=== PATIENT | male | born 1975 | race Two or more races ===

== ENCOUNTER 2018-09-03 11:45 | Outpatient (CLI) | payer OTHER | END 2018-09-03 13:53 | disposition home or self-care (01) | LOC: RAD 11:45 | DX: M77.31 Calcaneal spur, right foot (principal) ==

== ENCOUNTER → 2019-06-04 | Outpatient (CLI) | payer OTHER | END | disposition home or self-care (01) | LOC: RAD 08:46 | DX: M75.82 Other shoulder lesions, left shoulder (principal) ==

== ENCOUNTER → 2019-12-10 | Outpatient (CLI) | payer OTHER | END | disposition home or self-care (01) | LOC: MRI 11:45 | DX: M75.32 Calcific tendinitis of left shoulder (principal); M75.02 Adhesive capsulitis of left shoulder | CPT/HCPCS: 73221 ==

== ENCOUNTER 2024-11-11 07:59 | Outpatient (CLI) | payer OTHER | END 2024-11-11 08:00 | disposition home or self-care (01) | LOC: NUCLEAR 07:59 | DX: I73.9 Peripheral vascular disease, unspecified (principal); I70.0 Atherosclerosis of aorta; E11.65 Type 2 diabetes mellitus with hyperglycemia; R60.0 Localized edema ==

== ENCOUNTER 2024-11-18 08:55 | Outpatient (CLI) | payer OTHER | END 2024-11-18 09:02 | disposition home or self-care (01) | LOC: NUCLEAR 08:55 | PROVIDERS: ATTEND General Practice | DX: I73.9 Peripheral vascular disease, unspecified (principal); I10 Essential (primary) hypertension; E11.65 Type 2 diabetes mellitus with hyperglycemia ==

== ENCOUNTER → 2025-09-26 | Outpatient (CLI) | payer OTHER | END | disposition home or self-care (01) | LOC: RAD 14:12 | PROVIDERS: ATTEND Radiology Diagnostic Radiology | DX: M79.0 Rheumatism, unspecified (principal) ==

== ENCOUNTER 2025-10-27 07:07 | Outpatient (CLI) | payer OTHER | END 2025-10-27 07:08 | disposition home or self-care (01) | LOC: NUCLEAR 07:07 | PROVIDERS: ATTEND Surgery Surgery of the Hand | DX: M15.0 Primary generalized (osteo)arthritis (principal); M06.9 Rheumatoid arthritis, unspecified ==